=== PATIENT | male | born 1985 | race African-American/Black ===

== ENCOUNTER 2016-06-08 09:45 | Emergency (ER) | payer OTHER ==
[~2016-06-08] VITALS: Ht 193 cm; Wt 114.0 kg
[~2016-06-08 09:45] MED LIST: ALBU18HF INHALATION; ALBU8.5H3 INH; AZIT250T94 PO; BENZ100C70 PO; CEPH-443 PO; CLOT30CR24 TOP; CYCL-319 PO; DICL100G37 TOP; ELIM TOP; GUAI-47 PO; IBUP400T22 PO; MED4DP PO; MUPI22OI2 TOP; NAPR-688 PO; POLY30OI TOP; PRED20TA PO; UDROBDM PO
[2016-06-08 09:54] VITALS: Ht 193 cm; Wt 114.0 kg
[2016-06-08] MEDS ORDERED: KETOROLAC 30 MG INJ IM STA (12:01)
--- NOTE | 2016-06-08 13:04 | RADRPT ---
PROCEDURE: XR left shoulder. CLINICAL INDICATION: Pain TECHNIQUE: AP, Internal and external rotation views of the left shoulder were performed. COMPARISON: None. FINDINGS: There is normal osseous mineralization and alignment. No acute fracture or osseous lesion is identified. There are normal joints without evidence of arthritis or dislocation. The soft tissues are unremarkable. RPTAT: AA IMPRESSION: Unremarkable left shoulder. < .Stevie Rueda MD, MD Date Time Electronically viewed and signed by .Stevie Rueda MD, on 06/08/2016 13:04 .S/
--- NOTE | 2016-06-08 13:05 | RADRPT ---
PROCEDURE: Left knee x-ray CLINICAL INDICATION: Knee pain TECHNIQUE: AP, lateral and tunnel views of the left knee were obtained. COMPARISON: None FINDINGS: There is normal mineralization. No acute fracture or dislocation is seen. There are no significant degenerative changes. There is no joint effusion. There is no significant soft tissue swelling. RPTAT: AA IMPRESSION: Normal x-ray of the left knee. .Stevie Rueda MD, MD Date Time Electronically viewed and signed by .Stevie Rueda MD, on 06/08/2016 13:04 .S/
[2016-06-08] MEDS ORDERED: NAPR-260 PO (13:14)
[2016-06-08 13:30] VITALS: RESP 18
--- NOTE | 2016-06-08 13:35 | ERD ---
ER Documentation Chief Complaint Date/Time DATE: 06/08/16 TIME: 13:30 Chief Complaint left shoulder and left knee pain HPI Patient is a 31 year old male who presents to the ED with shoulder pain, knee pain after sustaining a fall yesterday. He says that he slipped on the stairs and fell on his shoulder and knee. He states that the pain is similar to yesterday. He states that he is able to move his arms and legs and is able to walk but he does have pain inside his joints. Denies pain above or below his knee. Denies radiation of pain in his shoulder. Denies pain in his arms, wrist or hand. Denies hitting his head, passing out, losing consciousness. Denies chest pain, shortness of breath or difficulty breathing. Patient is not taking any medication for his symptoms. He is up-to-date with his vaccinations. ROS All systems reviewed and are negative except as per history of present illness. Medications Home Meds Active Scripts Naproxen* (Naprosyn*) 500 Mg Tablet, 500 MG PO BID Y for PAIN AND/OR INFLAMMATION, #30 TAB Prov:PILAR HSU PA-C 06/08/16 Permethrin* (Elimite*) 5% Cr, 1 APPLIC TOP ONCE for 1 Day, TUB Prov:RAMANA MTZ PA-C 12/08/15 Clotrimazole* (Clotrimazole* AF) 1% - 30 Gm Cream.gm., 1 APPLIC TOP BID for 7 Days, TUB Prov:RAMANA MTZ PA-C 12/08/15 Permethrin* (Elimite*) 5% Cr, 1 APPLIC TOP ONCE, #1 TUB Prov:IMELDA KENNEDY PA-C 11/25/15 Clotrimazole* (Clotrimazole* AF) 1% - 30 Gm Cream.gm., 1 APPLIC TOP BID for 7 Days, #1 TUB Prov:IMELDA KENNEDY PA-C 11/25/15 Clotrimazole* (Clotrimazole* AF) 1% - 30 Gm Cream.gm., 1 APPLIC TOP BID for 7 Days, TUB Prov:OZZIE RODGERS 11/16/15 Clotrimazole* (Clotrimazole* AF) 1% - 30 Gm Cream.gm., 1 APPLIC TOP BID for 7 Days, TUB Prov:JASON VIERA PA-C 11/13/15 Mupirocin* (Bactroban*) 2% -22 Gram Oint...g., 1 APPLIC TOP BID for 7 Days, #1 TUB 0 Refills Prov:ANASTASIIA MOTLEY PA-C 11/09/15 Ibuprofen* (Motrin*) 400 Mg Tab, 400 MG PO Q6 for 7 Days, #30 TAB 0 Refills Prov:ANASTASIIA MOTLEY PA-C 11/09/15 Bacitracin-Polymyxin* (Polysporin* Topical) 28.35 Gm Oint, 1 APPLIC TOP BID for 10 Days, #10 TUB Prov:RAMANA MTZ PA-C 11/07/15 Methylprednisolone* (Medrol* DOSE PACK) 4 Mg/Dose-Pack Tab.ds.pk, 4 MG PO . DIRECTED for 6 Days, PACKET Prov:OZZIE RODGERS 11/03/15 Albuterol Sulfate* (Proair HFA*) 8.5 Gm Hfa.aer.ad, 2 PUFF INH Q4, #1 INHALER Prov:VISHALOZZIE Patterson 11/03/15 Cephalexin* (Keflex*) 500 Mg Capsule, 500 MG PO QID for 7 Days, CAP Prov:VISHALOZZIE VANCE 11/03/15 Albuterol Sulfate* (Ventolin HFA*) 18 Gm Hfa.aer.ad, 2 PUFF INHALATION Q6H for 30 Days, #1 INHALER 0 Refills Prov:ANASTASIIA MOTLEY PA-C 10/17/15 Guaifenesin-Dextromethorphan* (Robitussin* DM) 100MG/10MG/5ML Syrup, 5 ML PO Q6H Y for COUGH for 6 Days, #120 ML 0 Refills Prov:ANASTASIIA MOTLEY PA-C 10/17/15 Albuterol Sulfate* (Proair HFA*) 8.5 Gm Hfa.aer.ad, 2 PUFF INH Q4H Y for WHEEZING AND SOB, #1 INHALER Prov:GRIFFIN COHEN DO 07/24/15 Cyclobenzaprine Hcl* (Cyclobenzaprine Hcl*) 10 Mg Tablet, 10 MG PO Q8 Y for muscle spasm, #10 TAB Prov:GRIFFIN COHEN DO 07/24/15 Methylprednisolone* (Medrol* DOSE PACK) 4 Mg/Dose-Pack Tab.ds.pk, 4 MG PO . DIRECTED, #1 PACKET Prov:GRIFFIN COHEN DO 07/24/15 Naproxen* (Naproxen*) 500 Mg Tablet, 500 MG PO BID Y for PAIN, #20 TAB Prov:GRIFFIN COHEN 07/11/15 Diclofenac Sodium* (Voltaren* Gel) 1% -100 Gm Gel, 2 GM TOP QID, #1 TUB Prov:GRIFFIN COHEN 07/11/15 Cyclobenzaprine Hcl* (Cyclobenzaprine Hcl*) 10 Mg Tablet, 10 MG PO TID, #15 TAB Prov:GRIFFIN COHEN 07/11/15 Guaifenesin-Dextromethorphan* (Mucinex* DM) 600-30 Mg Tabsr, 1 TAB PO Q12, #30 TAB Prov:JAZMIN SANTIAGO PA-C 05/29/15 Prednisone* (Prednisone*) 20 Mg Tab, 60 MG PO DAILY for 5 Days, TAB Prov:JAZMIN SANTIAGO PA-C 05/29/15 Benzonatate* (Tessalon Perle*) 100 Mg Capsule, 100 MG PO Q8H Y for COUGH, #30 CAP Prov:KRISTY GARCIA MD 05/23/15 Albuterol Sulfate* (Ventolin HFA*) 18 Gm Hfa.aer.ad, 2 PUFF INHALATION Q4H, #1 INHALER Prov:KRISTY GARCIA MD 05/23/15 Azithromycin* (Zithromax*) 250 Mg Tablet, 250 MG PO .ZPACK DIRECTED, #6 TAB TAKE 500 MG (2 TABS) THE FIRST DAY THEN 250 MG (1 TAB) DAYS 2-5 Prov:KRISTY GARCIA MD 05/23/15 Allergies Allergies: Coded Allergies: No Known Allergy (Unverified , 06/08/16) PMhx/Soc Medical and Surgical Hx: pt denies Medical Hx, pt denies Surgical Hx History of Surgery: No Anesthesia Reaction: No Hx Neurological Disorder: No Hx Respiratory Disorders: No Hx Cardiac Disorders: No Hx Psychiatric Problems: No Hx Miscellaneous Medical Probl: No Hx Alcohol Use: No Hx Substance Use: No Hx Tobacco Use: Yes Smoking Status: Never smoker FmHx Family History: No coronary disease, No diabetes, No other Physical Exam Vitals Vital Signs Date Time Temp Pulse Resp B/P Pulse Ox O2 Delivery O2 Flow Rate FiO2 06/08/16 09:54 98.1 80 20 140/80 99 Physical Exam GENERAL: Well-developed, well-nourished male. Appears in no acute distress. HEAD: Normocephalic, atraumatic. NECK: Supple. No lymphadenopathy or thyromegaly. No meningismus. negative kernig. negative brudinski. LUNG: Clear to auscultation bilaterally. No rhonchi, wheezing, rales or coarse breath sounds. HEART: Regular rate and rhythm. No murmurs, rubs or gallops. Extremities: Equal pulses bilaterally. No peripheral clubbing, cyanosis or edema. No unilateral leg swelling. Tenderness to left shoulder with flexion and extension of shoulder. No deformities, step-offs, open wounds or laceration. No erythema. No pain in his elbow or wrist. No snuffbox tenderness. Tender to palpation to his left knee. Patient is able to ambulate without difficulty. No signs of dislocation, erythema, laceration or open wounds. No pain above or below his knee. No pain in his ankle. NEUROLOGIC: Alert and oriented. Moving all four extremities. 5/5 strength in all extremities. Normal speech. Steady gait. SKIN: Normal color. Warm and dry. No rashes or lesions. Capillary refill < 2 seconds Results 24 hrs Current Medications Medications (Trade) Dose Ordered Sig/Miguel Route PRN Reason Start Time Stop Time Status Last Admin Dose Admin Ketorolac Tromethamine (Toradol) 30 mg ONCE STAT IM 06/08/16 12:01 06/08/16 12:02 DC 06/08/16 12:13 Procedures/MDM ER COURSE: I kept the patient and/or family informed of laboratory and diagnostic imaging results throughout the emergency room course. MEDICATIONS IMAGING STUDIES [place] [address] Radiology Main Line: [phone] DIAGNOSTIC IMAGING REPORT Patient: NEENA HERNANDEZ : 1985 Age: 31 Sex: M MR #: [id number] DOS: 06/08/16 1201 Ordering MD: PILAR HSU PA-C Location: [facility] Room/Bed: PROCEDURE: Left knee x-ray CLINICAL INDICATION: Knee pain TECHNIQUE: AP, lateral and tunnel views of the left knee were obtained. COMPARISON: None FINDINGS: There is normal mineralization. No acute fracture or dislocation is seen. There are no significant degenerative changes. There is no joint effusion. There is no significant soft tissue swelling. RPTAT: AA IMPRESSION: Normal x-ray of the left knee. .Stevie Rueda MD, MD Date Time Electronically viewed and signed by .Stevie Rueda MD, on 06/08/2016 13: 04 .S/ CC: PILAR HSU PA-C [place] [id number] Radiology Main Line: [phone] DIAGNOSTIC IMAGING REPORT Patient: NEENA HERNANDEZ : 1985 Age: 31 Sex: M MR #: [id number] DOS: 06/08/16 1201 Ordering MD: PILAR HSU PA-C Location: [facility] Room/Bed: PROCEDURE: XR left shoulder. CLINICAL INDICATION: Pain TECHNIQUE: AP, Internal and external rotation views of the left shoulder were performed. COMPARISON: None. FINDINGS: There is normal osseous mineralization and alignment. No acute fracture or osseous lesion is identified. There are normal joints without evidence of arthritis or dislocation. The soft tissues are unremarkable. RPTAT: AA IMPRESSION: Unremarkable left shoulder. < .Stevie Rueda MD, Date Time Electronically viewed and signed by .Stevie Rueda MD, on 06/08/2016 13: 04 .S/ CC: PILAR HSU PA-C PROCEDURES ED seen. Tolerated well. Neurovascularly intact post splint placement. [Aldo wrap Assessment: Neurovascularly intact post aldo wrap placement with good fit to left knee. Patient's extremity symptoms have stabilized while they have been evaluated in the department and are appropriate for outpatient follow up. MEDICAL DECISION MAKING: This is a 31-year-old male who presents with shoulder and knee pain 1 day. Vital signs were reviewed. Patient is afebrile. Patient is not hypoxic. Patient is not toxic or ill-appearing. Patient has shoulder and knee pain of unknown etiology. X-rays read by radiology is unremarkable. Patient was given a Toradol shot in the ED and seen improvement in symptoms and had no adverse reaction. Low suspicion for dislocation, fracture, septic joint, compartment syndrome, osteomyelitis, cellulitis, avascular necrosis, neurological injury, vascular injury, tendon laceration. Low suspicion for dislocation, fracture, septic joint, compartment syndrome, osteomyelitis, avascular necrosis, DVT, Achilles tendon rupture, cellulitis. At this time, unable to rule out any tendon and ligament injuries. DISCHARGE: At this time, patient is stable for discharge and outpatient management with no new complaints during the ER course. Patient was sent home with Jonel and copy of his x-ray reports.. Patient will be discharged home with instructions to recheck for new or worsening symptoms such as fever, nausea, weakness, LOC and to follow up with primary care in the next 1-2 days. Patient was advised to return to the ER for any new or worsening symptoms. Plan was discussed and patient and/or family understands and agrees. Home instructions were given. Departure Diagnosis: Primary Impression: Knee pain Laterality: left Chronicity: unspecified Qualified Code: M25.562 - Left knee pain, unspecified chronicity Additional Impression: Shoulder pain Laterality: left Chronicity: unspecified Qualified Code: M25.512 - Left shoulder pain, unspecified chronicity Condition: Stable Patient Instructions: Knee Pain, Uncertain Cause, Shoulder Pain (Uncertain Cause) Additional Instructions: Call your primary care doctor TOMORROW for an appointment during the next 1-2 days.See the doctor sooner or return here if your condition worsens before your appointment time. PILAR HSU PA-C Jun 08, 2016 13:35
== END 2016-06-08 13:46 | disposition home or self-care (01) ==
LOC: FTE 09:45
DX: S49.92XA Unspecified injury of left shoulder and upper arm, initial encounter (principal); S89.92XA Unspecified injury of left lower leg, initial encounter; F17.210 Nicotine dependence, cigarettes, uncomplicated; W10.9XXA Fall (on) (from) unspecified stairs and steps, initial encounter; Y92.9 Unspecified place or not applicable
CPT/HCPCS: 73030; 73562; 96372; J1885; Z7502

== ENCOUNTER 2016-06-24 19:04 | Emergency (ER) | payer OTHER ==
[~2016-06-24] VITALS: Ht 182.9 cm; Wt 102.5 kg
[~2016-06-24 19:04] MED LIST changes: +NAPR-260 PO
[2016-06-24 19:08] VITALS: Ht 182.9 cm; Wt 102.5 kg
[2016-06-24] MEDS ORDERED: IBUP-1542 PO (20:31)
[2016-06-24 20:38] VITALS: BP 134/81; PULSE 91; RESP 20; TEMP 98.2
--- NOTE | 2016-06-24 20:38 | ERD ---
ER Documentation Chief Complaint Date/Time DATE: 06/24/16 TIME: 20:34 Chief Complaint shoulder and knee pain seen here previously. pt seen exhibiting odd behavio HPI Patient is a 31-year-old male who reports having a fall 2 weeks ago during which he fell onto his left knee and caught himself with his left arm causing pain to his left shoulder. The patient had x-rays at that time that did not show any bony injury. Patient returns to the ER stating that he is having ongoing pain. Denies further trauma. Denies swelling, denies worsening of symptoms. Patient is unsure who his PMD is and so has not followed up with PMD. Patient was given a prescription for medication on his last visit, but states that he lost his prescription. ROS All systems reviewed and are negative except as per history of present illness. Medications Home Meds Active Scripts Ibuprofen* (Motrin*) 600 Mg Tab, 600 MG PO Q8 Y for PAIN, #30 TAB Prov:CHANTEL HAY MD 06/24/16 Naproxen* (Naprosyn*) 500 Mg Tablet, 500 MG PO BID Y for PAIN AND/OR INFLAMMATION, #30 TAB Prov:PILAR HSU PA-C 06/08/16 Permethrin* (Elimite*) 5% Cr, 1 APPLIC TOP ONCE for 1 Day, TUB Prov:RAMANA MTZ PA-C 12/08/15 Clotrimazole* (Clotrimazole* AF) 1% - 30 Gm Cream.gm., 1 APPLIC TOP BID for 7 Days, TUB Prov:RAMANA MTZC 12/08/15 Permethrin* (Elimite*) 5% Cr, 1 APPLIC TOP ONCE, #1 TUB Prov:IMELDA KENNEDY PA-C 11/25/15 Clotrimazole* (Clotrimazole* AF) 1% - 30 Gm Cream.gm., 1 APPLIC TOP BID for 7 Days, #1 TUB Prov:IMELDA KENNEDYC 11/25/15 Clotrimazole* (Clotrimazole* AF) 1% - 30 Gm Cream.gm., 1 APPLIC TOP BID for 7 Days, TUB Prov:OZZIE RODGERS 11/16/15 Clotrimazole* (Clotrimazole* AF) 1% - 30 Gm Cream.gm., 1 APPLIC TOP BID for 7 Days, TUB Prov:JASON VIERA PA-C 11/13/15 Mupirocin* (Bactroban*) 2% -22 Gram Oint...g., 1 APPLIC TOP BID for 7 Days, #1 TUB 0 Refills Prov:ANASTASIIA MOTLEY PA-C 11/09/15 Ibuprofen* (Motrin*) 400 Mg Tab, 400 MG PO Q6 for 7 Days, #30 TAB 0 Refills Prov:ANASTASIIA MOTLEY PA-C 11/09/15 Bacitracin-Polymyxin* (Polysporin* Topical) 28.35 Gm Oint, 1 APPLIC TOP BID for 10 Days, #10 TUB Prov:RAMANA MTZ PA-C 11/07/15 Methylprednisolone* (Medrol* DOSE PACK) 4 Mg/Dose-Pack Tab.ds.pk, 4 MG PO . DIRECTED for 6 Days, PACKET Prov:OZZIE RODGERS 11/03/15 Albuterol Sulfate* (Proair HFA*) 8.5 Gm Hfa.aer.ad, 2 PUFF INH Q4, #1 INHALER Prov:OZZIE RODGERS 11/03/15 Cephalexin* (Keflex*) 500 Mg Capsule, 500 MG PO QID for 7 Days, CAP Prov:OZZIE RODGERS 11/03/15 Albuterol Sulfate* (Ventolin HFA*) 18 Gm Hfa.aer.ad, 2 PUFF INHALATION Q6H for 30 Days, #1 INHALER 0 Refills Prov:ANASTASIIA MOTLEY PA-C 10/17/15 Guaifenesin-Dextromethorphan* (Robitussin* DM) 100MG/10MG/5ML Syrup, 5 ML PO Q6H Y for COUGH for 6 Days, #120 ML 0 Refills Prov:ANASTASIIA MOTLEY PA-C 10/17/15 Albuterol Sulfate* (Proair HFA*) 8.5 Gm Hfa.aer.ad, 2 PUFF INH Q4H Y for WHEEZING AND SOB, #1 INHALER Prov:GRIFFIN COHEN DO 07/24/15 Cyclobenzaprine Hcl* (Cyclobenzaprine Hcl*) 10 Mg Tablet, 10 MG PO Q8 Y for muscle spasm, #10 TAB Prov:GRIFFIN COHEN 07/24/15 Methylprednisolone* (Medrol* DOSE PACK) 4 Mg/Dose-Pack Tab.ds.pk, 4 MG PO . DIRECTED, #1 PACKET Prov:GRIFFIN COHEN 07/24/15 Naproxen* (Naproxen*) 500 Mg Tablet, 500 MG PO BID Y for PAIN, #20 TAB Prov:VICKI,[facility] 07/11/15 Diclofenac Sodium* (Voltaren* Gel) 1% -100 Gm Gel, 2 GM TOP QID, #1 TUB Prov:VCIKI,[facility] 07/11/15 Cyclobenzaprine Hcl* (Cyclobenzaprine Hcl*) 10 Mg Tablet, 10 MG PO TID, #15 TAB Prov:VICKI,[facility] 07/11/15 Guaifenesin-Dextromethorphan* (Mucinex* DM) 600-30 Mg Tabsr, 1 TAB PO Q12, #30 TAB Prov:JAZMIN SANTIAGO PA-C 05/29/15 Prednisone* (Prednisone*) 20 Mg Tab, 60 MG PO DAILY for 5 Days, TAB Prov:JAZMIN SANTIAGO PA-C 05/29/15 Benzonatate* (Tessalon Perle*) 100 Mg Capsule, 100 MG PO Q8H Y for COUGH, #30 CAP Prov:KRISTY GARCIA MD 05/23/15 Albuterol Sulfate* (Ventolin HFA*) 18 Gm Hfa.aer.ad, 2 PUFF INHALATION Q4H, #1 INHALER Prov:KRISTY GARCIA MD 05/23/15 Azithromycin* (Zithromax*) 250 Mg Tablet, 250 MG PO .ZPACK DIRECTED, #6 TAB TAKE 500 MG (2 TABS) THE FIRST DAY THEN 250 MG (1 TAB) DAYS 2-5 Prov:KRISTY GARCIA MD 05/23/15 Allergies Allergies: Coded Allergies: No Known Allergy (Unverified , 06/08/16) PMhx/Soc Past medical history: Depression Past surgical history: Denies Social history: Denies tobacco or alcohol History of Surgery: No Anesthesia Reaction: No Hx Neurological Disorder: No Hx Respiratory Disorders: No Hx Cardiac Disorders: No Hx Psychiatric Problems: Yes (on psych meds, depression) Hx Miscellaneous Medical Probl: No Hx Alcohol Use: No Hx Substance Use: No Hx Tobacco Use: Yes (quit) Smoking Status: Former smoker FmHx Family History: No coronary disease, No diabetes Physical Exam Vitals Vital Signs Date Time Temp Pulse Resp B/P Pulse Ox O2 Delivery O2 Flow Rate FiO2 06/24/16 19:08 98.4 111 20 135/68 97 Physical Exam Const: Alert no acute distress Head: Atraumatic Eyes: Normal Conjunctiva, no pallor or icterus ENT: Normal External Ears, Nose and Mouth. Neck: Full range of motion. No tenderness Resp: Clear to auscultation bilaterally, no wheezes, no rales Cardio: Regular rate and rhythm, no murmurs Abd: Soft, non tender, non distended. Skin: No petechiae or rashes Back: No midline or flank tenderness Ext: Inconsistent exam. Patient is actively moving his arm and lifting objects without any apparent pain, but with the lightest palpation to posterior shoulder he complains of severe pain. There is no visible or palpable deformity. On passive range of motion with distraction there is no apparent pain. 2+ radial pulse, median, radial, and ulnar nerve intact distally at hand for motor and sensory function. Left knee no visible deformity or swelling. Extensor mechanism intact. No effusion. No ligamentous laxity. Inconsistent exam, with expression of significant pain with ranging of the joints and palpation, but minimal expression with ambulation or with distraction. Neur: Awake and alert, cranial nerves II through XII intact bilaterally, normal gait Psych: Normal Mood and Affect Procedures/MDM Patient with injury to left knee and shoulder 2 weeks ago. X-rays were negative. Exam is inconsistent, and patient has a normal gait and use of his left arm, but reports significant pain during minimal exam maneuvers. It is difficult for me to ascertain whether the patient has a true injury based upon his examination being inconsistent. It is possible that he may have a meniscal injury in the knee or a labrum tear or muscle strain in the shoulder. I have advised him that he needs to follow-up with his PMD for further evaluation and outpatient MRI is indicated. Patient function using his upper and lower limb appear to be intact. I will prescribe him Motrin for ongoing pain and encouraged him to see his PMD as soon as possible. Departure Diagnosis: Primary Impression: Knee pain Additional Impression: Shoulder pain Condition: Stable Patient Instructions: Knee Pain, Uncertain Cause, Shoulder Pain (Uncertain Cause) Additional Instructions: Follow-up with a primary doctor for further workup and possible referral to orthopedic surgeon. CHANTEL HAY MD Jun 24, 2016 20:38
== END 2016-06-24 20:39 | disposition home or self-care (01) ==
LOC: E/R 19:04
DX: S89.92XA Unspecified injury of left lower leg, initial encounter (principal); S49.92XA Unspecified injury of left shoulder and upper arm, initial encounter; R40.2142 Coma scale, eyes open, spontaneous, at arrival to emergency department; R40.2252 Coma scale, best verbal response, oriented, at arrival to emergency department; R40.2362 Coma scale, best motor response, obeys commands, at arrival to emergency department; W18.39XA Other fall on same level, initial encounter; Y92.9 Unspecified place or not applicable; Z87.891 Personal history of nicotine dependence
CPT/HCPCS: 99283

== ENCOUNTER 2016-08-22 13:36 | Emergency (ER) | payer OTHER ==
[~2016-08-22] VITALS: Ht 182.9 cm; Wt 98.0 kg
[~2016-08-22 13:36] MED LIST changes: +IBUP-1542 PO
[2016-08-22 13:45] VITALS: Ht 182.9 cm; Wt 98.0 kg
[2016-08-22] MEDS ORDERED: KETOROLAC 60 MG INJ IM STA (14:47)
[2016-08-22] MEDS ORDERED: HYDROCODONE/APAP (10/325) TAB PO ONE (15:00)
[2016-08-22] MEDS ORDERED: DOXYCYCLINE 100 MG TAB PO ONE (15:00)
[2016-08-22] MEDS ORDERED: HYDR-902 PO (15:24)
[2016-08-22] MEDS ORDERED: IBUP-1542 PO (15:24)
[2016-08-22] MEDS ORDERED: DOXY100T20 PO (15:24)
[2016-08-22 15:27] LABS: ADD UMIC YES; URINE BILIRUBIN (Dip) NEGATIVE (NEGATIVE); URINE BLOOD (Dip) NEGATIVE (NEGATIVE); URINE COLOR LT. YELLOW (YELLOW); URINE GLUCOSE (Dip) NEGATIVE (NEGATIVE); URINE KETONES (Dip) NEGATIVE (NEGATIVE); URINE LEUKOCYTE ESTERASE (Dip) NEGATIVE (NEGATIVE); URINE NITRITE (Dip) NEGATIVE (NEGATIVE); URINE TOTAL PROTEIN (Dip) NEGATIVE (NEGATIVE); URINE UROBILINOGEN (Dip) 0.2 E.U./dL (0.1-1.0)
--- NOTE | 2016-08-22 15:29 | ERD ---
ER Documentation Chief Complaint Date/Time DATE: 08/22/16 TIME: 15:27 Chief Complaint pelvic pain and pain with urination HPI This 31-year-old male complains of pelvic pressure discomfort with urination intermittently for last several weeks. He had a CAT scan 2 weeks ago which she was told they were unable to visualize anything abnormal. She had some intermittent rectal bleeding as well and says that he has a GI appointment pending to his primary doctor. He does not think he has been scheduled to see a urologist. He is taking antibiotics twice for this condition without improvement. ROS All systems reviewed and are negative except as per history of present illness. Medications Home Meds Active Scripts Ibuprofen* (Motrin*) 600 Mg Tab, 600 MG PO Q6, #30 TAB Prov:RYAN GOVEA MD 08/22/16 Doxycycline Hyclate* (Doxycycline Hyclate*) 100 Mg Tablet.dr, 100 MG PO BID for 14 Days, TAB Prov:RYAN GOVEA MD 08/22/16 Hydrocodone/Acetaminophen ([place] 10-325 Tablet) 1 Each Tablet, 1 TAB PO Q6H Y for PAIN, #15 TAB Prov:RYAN GOVEA MD 08/22/16 Ibuprofen* (Motrin*) 600 Mg Tab, 600 MG PO Q8 Y for PAIN, #30 TAB Prov:CHANTEL HAY MD 06/24/16 Naproxen* (Naprosyn*) 500 Mg Tablet, 500 MG PO BID Y for PAIN AND/OR INFLAMMATION, #30 TAB Prov:PILAR HSU PA-C 06/08/16 Permethrin* (Elimite*) 5% Cr, 1 APPLIC TOP ONCE for 1 Day, TUB Prov:RAMANA MTZ PA-C 12/08/15 Clotrimazole* (Clotrimazole* AF) 1% - 30 Gm Cream.gm., 1 APPLIC TOP BID for 7 Days, TUB Prov:RAMANA MTZ PA-C 12/08/15 Permethrin* (Elimite*) 5% Cr, 1 APPLIC TOP ONCE, #1 TUB Prov:IMELDA KENNEDY PA-C 11/25/15 Clotrimazole* (Clotrimazole* AF) 1% - 30 Gm Cream.gm., 1 APPLIC TOP BID for 7 Days, #1 TUB Prov:IMELDA KENNEDYC 11/25/15 Clotrimazole* (Clotrimazole* AF) 1% - 30 Gm Cream.gm., 1 APPLIC TOP BID for 7 Days, TUB Prov:OZZIE RODGERS Yesenia 11/16/15 Clotrimazole* (Clotrimazole* AF) 1% - 30 Gm Cream.gm., 1 APPLIC TOP BID for 7 Days, TUB Prov:JASON VIERAC 11/13/15 Mupirocin* (Bactroban*) 2% -22 Gram Oint...g., 1 APPLIC TOP BID for 7 Days, #1 TUB 0 Refills Prov:ANASTASIIA MOTLEY PA-C 11/09/15 Ibuprofen* (Motrin*) 400 Mg Tab, 400 MG PO Q6 for 7 Days, #30 TAB 0 Refills Prov:ANASTASIIA MOTLEY PA-C 11/09/15 Bacitracin-Polymyxin* (Polysporin* Topical) 28.35 Gm Oint, 1 APPLIC TOP BID for 10 Days, #10 TUB Prov:RAMANA MTZ PA-C 11/07/15 Methylprednisolone* (Medrol* DOSE PACK) 4 Mg/Dose-Pack Tab.ds.pk, 4 MG PO . DIRECTED for 6 Days, PACKET Prov:OZZIE RODGERS Yesenia 11/03/15 Albuterol Sulfate* (Proair HFA*) 8.5 Gm Hfa.aer.ad, 2 PUFF INH Q4, #1 INHALER Prov:OZZIE RODGERS 11/03/15 Cephalexin* (Keflex*) 500 Mg Capsule, 500 MG PO QID for 7 Days, CAP Prov:OZZIE RODGERS 11/03/15 Albuterol Sulfate* (Ventolin HFA*) 18 Gm Hfa.aer.ad, 2 PUFF INHALATION Q6H for 30 Days, #1 INHALER 0 Refills Prov:ANASTASIIA MOTLEY PA-C 10/17/15 Guaifenesin-Dextromethorphan* (Robitussin* DM) 100MG/10MG/5ML Syrup, 5 ML PO Q6H Y for COUGH for 6 Days, #120 ML 0 Refills Prov:ANASTASIIA MOTLEY PA-C 10/17/15 Albuterol Sulfate* (Proair HFA*) 8.5 Gm Hfa.aer.ad, 2 PUFF INH Q4H Y for WHEEZING AND SOB, #1 INHALER Prov:GRIFFIN COHEN 07/24/15 Cyclobenzaprine Hcl* (Cyclobenzaprine Hcl*) 10 Mg Tablet, 10 MG PO Q8 Y for muscle spasm, #10 TAB Prov:VICKI,[facility] 07/24/15 Methylprednisolone* (Medrol* DOSE PACK) 4 Mg/Dose-Pack Tab.ds.pk, 4 MG PO . DIRECTED, #1 PACKET Prov:VICKI,GRIFFIN DO 07/24/15 Naproxen* (Naproxen*) 500 Mg Tablet, 500 MG PO BID Y for PAIN, #20 TAB Prov:VICKI,[facility] 07/11/15 Diclofenac Sodium* (Voltaren* Gel) 1% -100 Gm Gel, 2 GM TOP QID, #1 TUB Prov:VICKI,[facility] 07/11/15 Cyclobenzaprine Hcl* (Cyclobenzaprine Hcl*) 10 Mg Tablet, 10 MG PO TID, #15 TAB Prov:VICKI,[facility] 07/11/15 Guaifenesin-Dextromethorphan* (Mucinex* DM) 600-30 Mg Tabsr, 1 TAB PO Q12, #30 TAB Prov:JAZMIN SANTIAGO PA-C 05/29/15 Prednisone* (Prednisone*) 20 Mg Tab, 60 MG PO DAILY for 5 Days, TAB Prov:JAZMIN SANTIAGO PA-C 05/29/15 Benzonatate* (Tessalon Perle*) 100 Mg Capsule, 100 MG PO Q8H Y for COUGH, #30 CAP Prov:KRISTY GARCIA MD 05/23/15 Albuterol Sulfate* (Ventolin HFA*) 18 Gm Hfa.aer.ad, 2 PUFF INHALATION Q4H, #1 INHALER Prov:KRISTY GARCIA MD 05/23/15 Azithromycin* (Zithromax*) 250 Mg Tablet, 250 MG PO .ZPACK DIRECTED, #6 TAB TAKE 500 MG (2 TABS) THE FIRST DAY THEN 250 MG (1 TAB) DAYS 2-5 Prov:KRISTY GARCIA MD 05/23/15 Allergies Allergies: Coded Allergies: No Known Allergy (Unverified , 08/22/16) PMhx/Soc Medical and Surgical Hx: pt denies Surgical Hx History of Surgery: No Anesthesia Reaction: No Hx Neurological Disorder: No Hx Respiratory Disorders: No Hx Cardiac Disorders: No Hx Psychiatric Problems: Yes (on psych meds, depression) Hx Miscellaneous Medical Probl: No Hx Alcohol Use: No Hx Substance Use: No Hx Tobacco Use: Yes (quit) Smoking Status: Never smoker Physical Exam Vitals Vital Signs Date Time Temp Pulse Resp B/P Pulse Ox O2 Delivery O2 Flow Rate FiO2 08/22/16 13:45 98.4 97 16 130/72 Physical Exam Const: [] Alert, ilk-sny-synitofrn Head: Atraumatic Eyes: Normal Conjunctiva ENT: Normal External Ears, Nose and Mouth. Neck: Full range of motion..~ No meningismus. Resp: Clear to auscultation bilaterally Cardio: Regular rate and rhythm, no murmurs Abd: Soft, minimally tender suprapubic area non distended. Normal bowel sounds. Rectal exam shows exquisitely and tender and enlarged prostate. There is no external rectal lesions or erythema or fluctuance Skin: No petechiae or rashes Back: No midline or flank tenderness Ext: No cyanosis, or edema Neur: Awake and alert Psych: Normal Mood and Affect Results 24 hrs Current Medications Medications (Trade) Dose Ordered Sig/Miguel Route PRN Reason Start Time Stop Time Status Last Admin Dose Admin Ketorolac Tromethamine (Toradol) 60 mg ONCE STAT IM 08/22/16 14:47 08/22/16 14:49 DC 08/22/16 15:01 Acetaminophen/ Hydrocodone Bitart (Vilas (10/325)) 1 tab ONCE ONCE PO 08/22/16 15:00 08/22/16 15:01 DC 08/22/16 15:02 Doxycycline Hyclate (Vibramycin) 100 mg ONCE ONCE PO 08/22/16 15:00 08/22/16 15:01 DC Procedures/MDM Patient has signs and symptoms of prostatitis, likely chronic. UA shows no acute abnormalities and sent for culture. Patient was given Toradol 60 mg IM and Vilas 10 mg by mouth. Patient was also given doxycycline 100 mg. Patient was advised that the next step would be to urology evaluation as he thought the GI doctor would be able to evaluate his prostate. Patient had a CT scan 2 weeks ago which by report was normal so for the study was deferred today given her risk of radiation and no fevers and stable vitals no signs or symptoms to suggest worsening intra-abdominal infection. Patient is advised to return for fevers, vomiting, worsening pain otherwise he will be referred to local urologist and was advised he may need authorization from his primary doctor for urology visit. Signs and symptoms do not suggest appendicitis, acute abdomen, obstruction. Departure Diagnosis: Primary Impression: Prostatitis Prostatitis type: chronic Qualified Code: N41.1 - Chronic prostatitis Condition: Stable Patient Instructions: Prostatitis Referrals: [facility],JER Figueredo MD Additional Instructions: Exam consistent with prostatitis. See urologist as advised. May need authorization from primary doctor. Recheck for fevers, additional symptoms. RYAN GOVEA MD Aug 22, 2016 15:29
[2016-08-22 15:49] LABS: BACTERIA,URINE FEW; URINE RBCS NONE SEEN /HPF (0)
== END 2016-08-22 15:40 | disposition home or self-care (01) ==
LOC: FTE 13:36
DX: N41.1 Chronic prostatitis (principal); Z87.891 Personal history of nicotine dependence
CPT/HCPCS: 81001; 96372; J1885; Z7502; Z7610

== ENCOUNTER 2016-08-24 00:29 | Emergency (ER) | payer OTHER ==
[~2016-08-24] VITALS: Wt 93.5 kg
[~2016-08-24 00:29] MED LIST changes: +DOXY100T20 PO; +HYDR-902 PO
[2016-08-24] MEDS ORDERED: KETOROLAC 60 MG INJ IM ONE (01:56)
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
[2016-08-24] MEDS ORDERED: IBUP-1542 PO (02:01)
[2016-08-24] MEDS ORDERED: CEPH-443 PO (02:01)
[2016-08-24 02:15] VITALS: BP 118/72; PULSE 71; RESP 20; TEMP 98.2
[2016-08-25] MEDS ORDERED: PHEN1SUP80 PR (20:38)
[2016-08-25] MEDS ORDERED: PRED20TA PO (20:38)
== END 2016-08-24 02:30 | disposition home or self-care (01) ==
LOC: FTE 00:29
DX: S61.210A Laceration without foreign body of right index finger without damage to nail, initial encounter (principal); X99.1XXA Assault by knife, initial encounter; Y92.410 Unspecified street and highway as the place of occurrence of the external cause; Z87.891 Personal history of nicotine dependence
CPT/HCPCS: 12001; 96372; J1885; Z7502

== ENCOUNTER 2016-08-25 16:28 | Emergency (ER) | payer OTHER ==
[~2016-08-25] VITALS: Ht 185.4 cm; Wt 89.0 kg
[2016-08-25 16:30] VITALS: Ht 185.4 cm; Wt 89.0 kg
[2016-08-25] MEDS ORDERED: ONDANSETRON 4 MG INJ IV STA (17:58)
[2016-08-25] MEDS ORDERED: morphine 4 MG/ML VIAL IV STA (17:58)
[2016-08-25 18:23] LABS: ADD SCAN DIFF NO
[2016-08-25 18:26] LABS: BASOPHIL # 0.1 10^3/ul (0.0-0.1); BASOPHILS % 0.7 % (0.0-2.0); EOSINOPHILS # 0.4 10^3/ul (0.0-0.5); EOSINOPHILS % 3.4 % (0.0-7.0); HEMATOCRIT 43.7 % (42.0-52.0); HEMOGLOBIN 13.7 g/dl (14.0-18.0); LYMPHOCYTES # 2.6 10^3/ul (0.8-2.9); LYMPHOCYTES % 23.6 % (15.0-51.0); MEAN CORPUSCULAR HEMOGLOBIN 27.8 pg (29.0-33.0); MEAN CORPUSCULAR HGB CONC 31.4 g/dl (32.0-37.0); MEAN CORPUSCULAR VOLUME 88.6 fl (82.0-101.0); MONOCYTE # 0.9 10^3/ul (0.3-0.9); MONOCYTES % 8.5 % (0.0-11.0); NEUTROPHILS % 63.4 % (39.0-77.0); PLATELET COUNT 261 10^3/UL (140-415); RED BLOOD COUNT 4.93 10^6/ul (4.70-6.10); RED CELL DISTRIBUTION WIDTH 14.1 % (11.5-14.5)
[2016-08-25 18:39] LABS: PROTIME 13.2 Sec (12.2-14.2)
[2016-08-25 18:47] LABS: ALBUMIN 4.6 g/dl (3.3-4.9); ALBUMIN/GLOBULIN RATIO 1.7; BILIRUBIN,INDIRECT 0.2 mg/dl (0-1.1); BILIRUBIN,TOTAL 0.2 mg/dl (0.2-1.3); CALCIUM 9.6 mg/dl (8.4-10.2); CREATININE 0.89 mg/dl (0.61-1.24); POTASSIUM 4.3 mmol/L (3.5-5.1); TOTAL PROTEIN 7.3 g/dl (6.1-8.1)
[2016-08-25] MEDS ORDERED: SOD CHLORIDE 0.9% 100 ML ONE (18:57)
[2016-08-25] MEDS ORDERED: IOHEXOL 300MG/ML 150 ML BTL ONE (18:57)
--- NOTE | 2016-08-25 20:21 | RADRPT ---
PROCEDURE: CT Abdomen and Pelvis with Contrast CLINICAL INDICATION: Rectal pain, rule out abscess TECHNIQUE: Transaxial images were obtained through the abdomen and pelvis on a multi-slice scanner following the intravenous administration of iodinated contrast. No oral contrast had previously be en given. Sagittal and coronal re-formations were subsequently reconstructed. One or more of the following dose reduction techniques were used: - Automated exposure control. - Adjustment of the mA and/or kV according to patient size. - Use of iterative reconstruction technique. Radiation dose: CTDIvol = 10.60 mGy; DLP = 728.32 mGy-cm. COMPARISON: No prior studies are available for comparison. FINDINGS: Lung bases: The visualized lung bases appear unremarkable. Liver: Normal in size and in attenuation. There is no focal lesion. The hepatic veins and portal vei ns appear patent. Gallbladder: The wall is not thickened. No radiopaque stones are identified. Bile ducts: The intra and extrahepatic bile ducts are normal in caliber. Pancreas: Appears normal with no mass or inflammation evident. Spleen: Normal in size with no focal lesion. Adrenals: Normal with no mass identified. Kidneys, ureters and bladder: The kidneys enhance normally and are normal in size and there is no ma ss, pathological calcification, or hydronephrosis evident. There is no perinephric stranding. The ur eters are normal in caliber and no ureteroliths are identified. The bladder appears unremarkable. Reproductive organs: Unremarkable. Stomach, bowel, and mesentery: The stomach appears unremarkable. There is no evidence of bowel obst ruction or inflammation. The rectum appears unremarkable and no perirectal or perineal abscess is e vident. Appendix: A normal vermiform appendix is evident. Peritoneum: No free intraperitoneal fluid or air is identified. Aorta: Normal in caliber with no aneurysmal dilatation. IVC: Unremarkable. Lymph nodes: No pathologically enlarged nodes are identified. Osseous structures: The osseous elements appear intact. IMPRESSION: Unremarkable CT scan of the abdomen and pelvis. Physician Diana Date Time Electronically viewed and signed by Physician Diana on 08/25/2016 20:21 RH/
[2016-08-25] MEDS ORDERED: PRED20TA PO (20:38)
[2016-08-25] MEDS ORDERED: PHEN1SUP80 PR (20:38)
--- NOTE | 2016-08-26 00:41 | ERD ---
ER Documentation Chief Complaint Date/Time DATE: 08/26/16 TIME: 00:23 Chief Complaint LEFT INDEX SMALL CUT HPI 31-year-old male complaining of rectal pain and blood in the stool. Patient stated that since that has been persisting on and off for the last 2-3 weeks. The blood is bright red in the color. Patient has been seen at several EDs in the that time, Including this ED. This is his third visit in the last 3 days. He was told that he has prostatitis, and had been given doxycycline and Cipro in the past. Patient stated that none of the medications have helped his symptoms. He describes his rectal pain is pressure-like, and unbearable. He feels as if something is falling out. Denies fever or chills. Denies dysuria. Patient denies engaging in anal sex. Patient is homeless. ROS All systems reviewed and are negative except as per history of present illness. Medications Home Meds Active Scripts Phenylephrine HCl/Boaz Butter* (Preparation H* Suppository) 1 Each Supp.rect, 1 EACH TN TID, #30 SUPP.RECT Prov:LALO BARNES NP 08/25/16 Prednisone* (Prednisone*) 20 Mg Tab, 60 MG PO DAILY for 3 Days, TAB Prov:LALO BARNES NP 08/25/16 Ibuprofen* (Motrin*) 600 Mg Tab, 600 MG PO Q6H Y for PAIN AND OR ELEVATED TEMP, #30 TAB Prov:ANGEL TOBAR NP 08/24/16 Cephalexin* (Keflex*) 500 Mg Capsule, 500 MG PO QID for 5 Days, CAP Prov:ANGEL TOBAR NP 08/24/16 Ibuprofen* (Motrin*) 600 Mg Tab, 600 MG PO Q6, #30 TAB Prov:RYAN GOVEA MD 08/22/16 Doxycycline Hyclate* (Doxycycline Hyclate*) 100 Mg Tablet.dr, 100 MG PO BID for 14 Days, TAB Prov:RYAN GOVEA MD 08/22/16 Hydrocodone/Acetaminophen (Cameron 10-325 Tablet) 1 Each Tablet, 1 TAB PO Q6H Y for PAIN, #15 TAB Prov:RYAN GOVEA MD 08/22/16 Ibuprofen* (Motrin*) 600 Mg Tab, 600 MG PO Q8 Y for PAIN, #30 TAB Prov:CHANTEL HAY MD 06/24/16 Naproxen* (Naprosyn*) 500 Mg Tablet, 500 MG PO BID Y for PAIN AND/OR INFLAMMATION, #30 TAB Prov:PILAR HSU PA-C 06/08/16 Permethrin* (Elimite*) 5% Cr, 1 APPLIC TOP ONCE for 1 Day, TUB Prov:RAMANA MTZ PA-C 12/08/15 Clotrimazole* (Clotrimazole* AF) 1% - 30 Gm Cream.gm., 1 APPLIC TOP BID for 7 Days, TUB Prov:RAMANA MTZ PA-C 12/08/15 Permethrin* (Elimite*) 5% Cr, 1 APPLIC TOP ONCE, #1 TUB Prov:IMELDA KENNEDY PA-C 11/25/15 Clotrimazole* (Clotrimazole* AF) 1% - 30 Gm Cream.gm., 1 APPLIC TOP BID for 7 Days, #1 TUB Prov:IMELDA KENNEDY PA-C 11/25/15 Clotrimazole* (Clotrimazole* AF) 1% - 30 Gm Cream.gm., 1 APPLIC TOP BID for 7 Days, TUB Prov:OZZIE RODGERS 11/16/15 Clotrimazole* (Clotrimazole* AF) 1% - 30 Gm Cream.gm., 1 APPLIC TOP BID for 7 Days, TUB Prov:JASON VIERA PA-C 11/13/15 Mupirocin* (Bactroban*) 2% -22 Gram Oint...g., 1 APPLIC TOP BID for 7 Days, #1 TUB 0 Refills Prov:ANASTASIIA MOTLEY PA-C 11/09/15 Ibuprofen* (Motrin*) 400 Mg Tab, 400 MG PO Q6 for 7 Days, #30 TAB 0 Refills Prov:ANASTASIIA MOTLEY PA-C 11/09/15 Bacitracin-Polymyxin* (Polysporin* Topical) 28.35 Gm Oint, 1 APPLIC TOP BID for 10 Days, #10 TUB Prov:RAMANA MTZ PA-C 11/07/15 Methylprednisolone* (Medrol* DOSE PACK) 4 Mg/Dose-Pack Tab.ds.pk, 4 MG PO . DIRECTED for 6 Days, PACKET Prov:OZZIE RODGERS Yesenia 11/03/15 Albuterol Sulfate* (Proair HFA*) 8.5 Gm Hfa.aer.ad, 2 PUFF INH Q4, #1 INHALER Prov:OZZIE RODGERS Yes[place] 11/03/15 Cephalexin* (Keflex*) 500 Mg Capsule, 500 MG PO QID for 7 Days, CAP Prov:OZZIE RODGERS Yes[place] 11/03/15 Albuterol Sulfate* (Ventolin HFA*) 18 Gm Hfa.aer.ad, 2 PUFF INHALATION Q6H for 30 Days, #1 INHALER 0 Refills Prov:ANASTASIIA MOTLEY PA-C 10/17/15 Guaifenesin-Dextromethorphan* (Robitussin* DM) 100MG/10MG/5ML Syrup, 5 ML PO Q6H Y for COUGH for 6 Days, #120 ML 0 Refills Prov:ANASTASIIA MOTLEY PA-C 10/17/15 Albuterol Sulfate* (Proair HFA*) 8.5 Gm Hfa.aer.ad, 2 PUFF INH Q4H Y for WHEEZING AND SOB, #1 INHALER Prov:GRIFFIN COHEN DO 07/24/15 Cyclobenzaprine Hcl* (Cyclobenzaprine Hcl*) 10 Mg Tablet, 10 MG PO Q8 Y for muscle spasm, #10 TAB Prov:GRIFFIN COHEN DO 07/24/15 Methylprednisolone* (Medrol* DOSE PACK) 4 Mg/Dose-Pack Tab.ds.pk, 4 MG PO . DIRECTED, #1 PACKET Prov:GRIFFIN COHEN DO 07/24/15 Naproxen* (Naproxen*) 500 Mg Tablet, 500 MG PO BID Y for PAIN, #20 TAB Prov:GRIFFIN COHEN DO 07/11/15 Diclofenac Sodium* (Voltaren* Gel) 1% -100 Gm Gel, 2 GM TOP QID, #1 TUB Prov:GRIFFIN COHEN DO 07/11/15 Cyclobenzaprine Hcl* (Cyclobenzaprine Hcl*) 10 Mg Tablet, 10 MG PO TID, #15 TAB Prov:GRIFFIN COHEN DO 07/11/15 Guaifenesin-Dextromethorphan* (Mucinex* DM) 600-30 Mg Tabsr, 1 TAB PO Q12, #30 TAB Prov:JAZMIN SANTIAGO PA-C 05/29/15 Prednisone* (Prednisone*) 20 Mg Tab, 60 MG PO DAILY for 5 Days, TAB Prov:JAZMIN SANTIAGO PA-C 05/29/15 Benzonatate* (Tessalon Perle*) 100 Mg Capsule, 100 MG PO Q8H Y for COUGH, #30 CAP Prov:KRISTY GARCIA MD 05/23/15 Albuterol Sulfate* (Ventolin HFA*) 18 Gm Hfa.aer.ad, 2 PUFF INHALATION Q4H, #1 INHALER Prov:KRISTY GARCIA MD 05/23/15 Azithromycin* (Zithromax*) 250 Mg Tablet, 250 MG PO .ZPACK DIRECTED, #6 TAB TAKE 500 MG (2 TABS) THE FIRST DAY THEN 250 MG (1 TAB) DAYS 2-5 Prov:KRISTY GARCIA MD 05/23/15 Allergies Allergies: Coded Allergies: No Known Allergy (Unverified , 08/22/16) PMhx/Soc History of Surgery: No Anesthesia Reaction: No Hx Neurological Disorder: No Hx Respiratory Disorders: No Hx Cardiac Disorders: No Hx Psychiatric Problems: Yes (on psych meds, depression) Hx Miscellaneous Medical Probl: No Hx Alcohol Use: No Hx Substance Use: No Hx Tobacco Use: Yes (quit) Smoking Status: Current every day smoker Physical Exam Vitals Vital Signs Date Time Temp Pulse Resp B/P Pulse Ox O2 Delivery O2 Flow Rate FiO2 08/25/16 16:30 98.1 89 20 148/78 99 Physical Exam General: Well-developed, well-nourished, conscious and coherent, in no distress Skin: Warm and dry without rash, good texture and turgor Head: Normocephalic without evidence of trauma Eyes: Sclera and conjunctivae normal; pupils equal, round, and reactive to light; extraocular movements are intact Chest: Normal AP diameter. Good expansion without retractions. Nontender. Lungs are clear to auscultate bilaterally with good tidal volume Heart: Regular rate and rhythm. No murmur, rub, or gallops heard Abdomen: Soft and nontender without masses, guarding, or rebound. Bowel sounds are active. No hepatosplenomegaly Pelvis: Nontender to palpation and stable to compression Rectal: Normal tone. Rectal wall tenderness, unable to perform prostate exam due to pain. Stool is brown. Patient also has erythema tenderness in the gluteal folds. Extremities: Full range of motion. Good strength bilaterally. No clubbing, cyanosis, or edema. Peripheral pulses are intact. Sensation intact Neuro: Alert and oriented 4, GCS 15. Cranial nerves grossly intact. Motor and sensory exams nonfocal. Moves all extremities. Speech clear. Gait normal Psych: Pressured speech, anxious in appearance. Result Diagram: 08/25/16 1820 08/25/16 1820 Results 24 hrs Laboratory Tests Test 08/25/16 18:20 White Blood Count 11.010^3/ul Red Blood Count 4.9310^6/ul Hemoglobin 13.7g/dl Hematocrit 43.7% Mean Corpuscular Volume 88.6fl Mean Corpuscular Hemoglobin 27.8pg Mean Corpuscular Hemoglobin Concent 31.4g/dl Red Cell Distribution Width 14.1% Platelet Count 19697^3/UL Mean Platelet Volume 11.0fl Neutrophils % 63.4% Lymphocytes % 23.6% Monocytes % 8.5% Eosinophils % 3.4% Basophils % 0.7% Nucleated Red Blood Cells % 0.0/100WBC Neutrophils # 7.010^3/ul Lymphocytes # 2.610^3/ul Monocytes # 0.910^3/ul Eosinophils # 0.410^3/ul Basophils # 0.110^3/ul Nucleated Red Blood Cells # 0.010^3/ul Prothrombin Time 13.2Sec Prothrombin Time Ratio 1.0 INR International Normalized Ratio 1.00 Activated Partial Thromboplast Time 27.0Sec Sodium Level 140mmol/L Potassium Level 4.3mmol/L Chloride Level 106mmol/L Carbon Dioxide Level 24mmol/L Anion Gap 14 Blood Urea Nitrogen 16mg/dl Creatinine 0.89mg/dl Glucose Level 88mg/dl Calcium Level 9.6mg/dl Total Bilirubin 0.2mg/dl Direct Bilirubin 0.00mg/dl Indirect Bilirubin 0.2mg/dl Aspartate Amino Transf (AST/SGOT) 29IU/L Alanine Aminotransferase (ALT/SGPT) 37IU/L Alkaline Phosphatase 58IU/L Total Protein 7.3g/dl Albumin 4.6g/dl Globulin 2.70g/dl Albumin/Globulin Ratio 1.70 Current Medications Medications (Trade) Dose Ordered Sig/Miguel Route PRN Reason Start Time Stop Time Status Last Admin Dose Admin Morphine Sulfate (morphine) 4 mg ONCE STAT IV 08/25/16 17:58 08/25/16 18:00 DC 08/25/16 18:17 Ondansetron HCl (Zofran Inj) 4 mg ONCE STAT IV 08/25/16 17:58 08/25/16 18:00 DC 08/25/16 18:16 IV Flush 10 ml 10 ml STK-MED ONCE .ROUTE 08/25/16 18:57 08/25/16 18:58 DC 08/25/16 19:36 Sodium Chloride (NS) 100 ml @ ud STK-MED ONCE .ROUTE 08/25/16 18:57 08/25/16 18:58 DC 08/25/16 19:36 Iohexol (Omnipaque 300mg/ ml) 150 ml STK-MED ONCE .ROUTE 08/25/16 18:57 08/25/16 18:58 DC 08/25/16 19:36 PROCEDURE: CT Abdomen and Pelvis with Contrast CLINICAL INDICATION: Rectal pain, rule out abscess TECHNIQUE: Transaxial images were obtained through the abdomen and pelvis on a multi-slice scanner following the intravenous administration of iodinated contrast. No oral contrast had previously been given. Sagittal and coronal re- formations were subsequently reconstructed. One or more of the following dose reduction techniques were used: - Automated exposure control. - Adjustment of the mA and/or kV according to patient size. - Use of iterative reconstruction technique. Radiation dose: CTDIvol = 10.60 mGy; DLP = 728.32 mGy-cm. COMPARISON: No prior studies are available for comparison. FINDINGS: Lung bases: The visualized lung bases appear unremarkable. Liver: Normal in size and in attenuation. There is no focal lesion. The hepatic veins and portal veins appear patent. Gallbladder: The wall is not thickened. No radiopaque stones are identified. Bile ducts: The intra and extrahepatic bile ducts are normal in caliber. Pancreas: Appears normal with no mass or inflammation evident. Spleen: Normal in size with no focal lesion. Adrenals: Normal with no mass identified. Kidneys, ureters and bladder: The kidneys enhance normally and are normal in size and there is no mass, pathological calcification, or hydronephrosis evident. There is no perinephric stranding. The ureters are normal in caliber and no ureteroliths are identified. The bladder appears unremarkable. Reproductive organs: Unremarkable. Stomach, bowel, and mesentery: The stomach appears unremarkable. There is no evidence of bowel obstruction or inflammation. The rectum appears unremarkable and no perirectal or perineal abscess is evident. Appendix: A normal vermiform appendix is evident. Peritoneum: No free intraperitoneal fluid or air is identified. Aorta: Normal in caliber with no aneurysmal dilatation. IVC: Unremarkable. Lymph nodes: No pathologically enlarged nodes are identified. Osseous structures: The osseous elements appear intact. IMPRESSION: Unremarkable CT scan of the abdomen and pelvis. Physician Diana Date Time Electronically viewed and signed by Physician Diana on 08/25/2016 20:21 RH/ CC: LALO BARNES WELDING PANTOGRAPH OPERATOR Procedures/MDM 31-year-old male presented ED today with rectal pain. He has some erythema tenderness in the gluteal fold along with rectal wall tenderness. I have concern for perianal or perirectal abscess. CT abdomen and pelvis with IV contrast was obtained. No abscess was noted on CT. since patient has already been treated with various antibiotics for acute prostatitis in the last 2 weeks , I doubt that he has acute prostatitis. It is uncertain the cause of patient' s rectal pain at this time. Differential include but not limited to anal fissure, hemorrhoids, rectal wall prolapse. Patient had been given referral to a urologist and keying machine operator on his previous visit. Patient is currently awaiting appointment with the specialist. Advised patient to follow-up with a specialist for further evaluation. Housing long-term resources provided for the patient. Patient appears well, stable for discharge and outpatient management. Medical decision making shared with patient and family. Education provided to patient and family. Patient and family expressed understanding of the plan. Medications on discharge: Ibuprofen, Preparation H suppository. Follow-up: Primary care provider in 2-3 days or return to ED if worse. Departure Diagnosis: Primary Impression: Anal or rectal pain Condition: Stable Patient Instructions: Understanding Rectal Bleeding Referrals: [facility] YOU HAVE RECEIVED A MEDICAL SCREENING EXAM AND THE RESULTS INDICATE THAT YOU DO NOT HAVE A CONDITION THAT REQUIRES URGENT TREATMENT IN THE EMERGENCY DEPARTMENT. FURTHER EVALUATION AND TREATMENT OF YOUR CONDITION CAN WAIT UNTIL YOU ARE SEEN IN YOUR DOCTORS OFFICE WITHIN THE NEXT 1-2 DAYS. IT IS YOUR RESPONSIBILITY TO MAKE AN APPOINTMENT FOR FOLOW-UP CARE. IF YOU HAVE A PRIMARY DOCTOR --you should call your primary doctor and schedule an appointment IF YOU DO NOT HAVE A PRIMARY DOCTOR YOU CAN CALL OUR PHYSICIAN REFERRAL HOTLINE AT IF YOU CAN NOT AFFORD TO SEE A PHYSICIAN YOU CAN CHOSE FROM THE FOLLOWING [facility] [address]. [facility] [address] [facility] [facility] [address] [facility] [address] [facility] [address]. [facility]. [address] Additional Instructions: Call your primary care doctor TOMORROW for an appointment during the next 2-3 days.See the doctor sooner or return here if your condition worsens before your appointment time. LALO BARNES NP Aug 26, 2016 00:34
== END 2016-08-25 20:58 | disposition home or self-care (01) ==
LOC: FTE 16:28
DX: K62.89 Other specified diseases of anus and rectum (principal); F17.210 Nicotine dependence, cigarettes, uncomplicated
CPT/HCPCS: 74177; 80053; 85025; 85610; 85730; J2270; J2405; Q9967; Z7610; 96374; 96375

== ENCOUNTER 2016-08-31 22:58 | Emergency (ER) | payer OTHER ==
[~2016-08-31] VITALS: Ht 177.8 cm; Wt 94.0 kg
[~2016-08-31 22:58] MED LIST changes: +PHEN1SUP80 PR
[2016-08-31 23:12] VITALS: Ht 177.8 cm; Wt 94.0 kg
[2016-08-31] MEDS ORDERED: ONDANSETRON 4 MG INJ IV STA (23:47)
[2016-08-31] MEDS ORDERED: SOD CHLORIDE 0.9% 1,000 ML IV STA (23:47)
[2016-09-01] MEDS ORDERED: morphine 4 MG/ML VIAL ONE (00:16)
[2016-09-01] MEDS ORDERED: morphine 2 MG INJ ONE (00:16)
[2016-09-01 00:29] LABS: ADD SCAN DIFF NO
[2016-09-01] MEDS ORDERED: morphine 10 MG INJ IV ONE ×2 (00:30→02:00)
[2016-09-01 00:33] LABS: BASOPHILS % 0.1 % (0.0-2.0); EOSINOPHILS # 0.3 10^3/ul (0.0-0.5); EOSINOPHILS % 2.4 % (0.0-7.0); HEMATOCRIT 45.5 % (42.0-52.0); HEMOGLOBIN 14.3 g/dl (14.0-18.0); LYMPHOCYTES % 7.2 % (15.0-51.0); MEAN CORPUSCULAR HEMOGLOBIN 27.6 pg (29.0-33.0); MEAN CORPUSCULAR HGB CONC 31.4 g/dl (32.0-37.0); MEAN CORPUSCULAR VOLUME 87.7 fl (82.0-101.0); MEAN PLATELET VOLUME 10.9 fl (7.4-10.4); MONOCYTE # 0.5 10^3/ul (0.3-0.9); MONOCYTES % 3.6 % (0.0-11.0); NEUTROPHIL # 12.5 10^3/ul (1.6-7.5); NEUTROPHILS % 86.1 % (39.0-77.0); PLATELET COUNT 255 10^3/UL (140-415); RED BLOOD COUNT 5.19 10^6/ul (4.70-6.10); RED CELL DISTRIBUTION WIDTH 14.1 % (11.5-14.5); WHITE BLOOD COUNT 14.5 10^3/ul (4.8-10.8)
[2016-09-01 00:59] LABS: ALBUMIN 4.9 g/dl (3.3-4.9); ALBUMIN/GLOBULIN RATIO 1.88; BILIRUBIN,INDIRECT 0.8 mg/dl (0-1.1); BILIRUBIN,TOTAL 0.8 mg/dl (0.2-1.3); CALCIUM 9.2 mg/dl (8.4-10.2); CREATININE 1.03 mg/dl (0.61-1.24); TOTAL PROTEIN 7.5 g/dl (6.1-8.1)
[2016-09-01] MEDS ORDERED: SOD CHLORIDE 0.9% 100 ML ONE (01:29)
[2016-09-01] MEDS ORDERED: IOHEXOL 300MG/ML 150 ML BTL ONE (01:29)
--- NOTE | 2016-09-01 04:00 | RADRPT ---
PROCEDURE: CT abdomen and pelvis with intravenous contrast. CLINICAL INDICATION: Pain. TECHNIQUE: CT of the abdomen/pelvis was performed utilizing axial images with reconstructions in s agittal and coronal planes after uneventful administration of 90 cc Omnipaque 300. The administered radiation dose is CTDI 10.7 mGy, DLP 720 mGy-cm. COMPARISON: 08/25/2016 FINDINGS: Visualized Chest: The visualized lung bases are clear. Abdomen: The liver, spleen, pancreas, gallbladder,and adrenal glands are unremarkable. The kidneys are without hydronephrosis. No definite urinary calculi are seen. There is no evidence of bowel obstruction. The appendix is normal. No intra-abdominal free air is seen. There is no evidence of intra-abdominal adenopathy or free fluid. Pelvis: There is no evidence of pelvic adenopathy or free fluid. The prostate and bladder are unremarkable. Osseous structures: Unremarkable. IMPRESSION: No acute findings. RPTAT: HIKT .Hemant Devine MD, MD Date Time Electronically viewed and signed by .Hemant Devine MD, on 09/01/2016 04:00 .T/
[2016-09-01] MEDS ORDERED: METO10TA92 PO (05:28)
[2016-09-01 05:29] VITALS: BP 119/74; PULSE 76; RESP 12; TEMP 98.3
--- NOTE | 2016-09-01 05:29 | ERD ---
ER Documentation Chief Complaint Date/Time DATE: 09/01/16 TIME: 05:29 Chief Complaint lower abd pain x 1 week HPI 31-year-old homeless male presenting with lower abdominal pain with associated nausea and vomiting. Patient is yelling in pain and refuses to answer any questions. ROS Limited as the patient is noncooperative Medications Home Meds Active Scripts Metoclopramide* (Reglan*) 10 Mg Tablet, 10 MG PO Q6 Y for NAUSEA AND/OR VOMITING , #10 TAB Prov:MYRTLE BELTRE MD 09/01/16 Doxycycline Hyclate* (Doxycycline Hyclate*) 100 Mg Tablet.dr, 100 MG PO BID for 14 Days, TAB Prov:RYAN GOVEA MD 08/22/16 Hydrocodone/Acetaminophen ([place] 10-325 Tablet) 1 Each Tablet, 1 TAB PO Q6H Y for PAIN, #15 TAB Prov:RYAN GOVEA MD 08/22/16 Albuterol Sulfate* (Proair HFA*) 8.5 Gm Hfa.aer.ad, 2 PUFF INH Q4H Y for WHEEZING AND SOB, #1 INHALER Prov:GRIFFIN COHEN DO 07/24/15 Discontinued Scripts Phenylephrine HCl/[place] Butter* (Preparation H* Suppository) 1 Each Supp.rect, 1 EACH ME TID, #30 SUPP.RECT Prov:LALO BARNES NP 08/25/16 Prednisone* (Prednisone*) 20 Mg Tab, 60 MG PO DAILY for 3 Days, TAB Prov:LALO BARNES NP 08/25/16 Ibuprofen* (Motrin*) 600 Mg Tab, 600 MG PO Q6H Y for PAIN AND OR ELEVATED TEMP, #30 TAB Prov:ANGEL TOBAR NP 08/24/16 Cephalexin* (Keflex*) 500 Mg Capsule, 500 MG PO QID for 5 Days, CAP Prov:ANGEL TOBAR NP 08/24/16 Ibuprofen* (Motrin*) 600 Mg Tab, 600 MG PO Q6, #30 TAB Prov:RYAN GOVEA MD 08/22/16 Ibuprofen* (Motrin*) 600 Mg Tab, 600 MG PO Q8 Y for PAIN, #30 TAB Prov:CHANTEL HAY MD 06/24/16 Naproxen* (Naprosyn*) 500 Mg Tablet, 500 MG PO BID Y for PAIN AND/OR INFLAMMATION, #30 TAB Prov:PILAR HSU PA-C 06/08/16 Permethrin* (Elimite*) 5% Cr, 1 APPLIC TOP ONCE for 1 Day, TUB Prov:RAMANA MTZC 12/08/15 Clotrimazole* (Clotrimazole* AF) 1% - 30 Gm Cream.gm., 1 APPLIC TOP BID for 7 Days, TUB Prov:RAMANA MTZ PA-C 12/08/15 Permethrin* (Elimite*) 5% Cr, 1 APPLIC TOP ONCE, #1 TUB Prov:IMELDA KENNEDY PA-C 11/25/15 Clotrimazole* (Clotrimazole* AF) 1% - 30 Gm Cream.gm., 1 APPLIC TOP BID for 7 Days, #1 TUB Prov:IMELDA KENNEDY PA-C 11/25/15 Clotrimazole* (Clotrimazole* AF) 1% - 30 Gm Cream.gm., 1 APPLIC TOP BID for 7 Days, TUB Prov:OZZIE RODGERS 11/16/15 Clotrimazole* (Clotrimazole* AF) 1% - 30 Gm Cream.gm., 1 APPLIC TOP BID for 7 Days, TUB Prov:JASON VIERA PA-C 11/13/15 Mupirocin* (Bactroban*) 2% -22 Gram Oint...g., 1 APPLIC TOP BID for 7 Days, #1 TUB 0 Refills Prov:ANASTASIIA MOTLEY PA-C 11/09/15 Ibuprofen* (Motrin*) 400 Mg Tab, 400 MG PO Q6 for 7 Days, #30 TAB 0 Refills Prov:ANASTASIIA MOTLEY PA-C 11/09/15 Bacitracin-Polymyxin* (Polysporin* Topical) 28.35 Gm Oint, 1 APPLIC TOP BID for 10 Days, #10 TUB Prov:RAMANA MTZ PA-C 11/07/15 Methylprednisolone* (Medrol* DOSE PACK) 4 Mg/Dose-Pack Tab.ds.pk, 4 MG PO . DIRECTED for 6 Days, PACKET Prov:OZZIE RODGERS 11/03/15 Albuterol Sulfate* (Proair HFA*) 8.5 Gm Hfa.aer.ad, 2 PUFF INH Q4, #1 INHALER Prov:OZZIE RODGERS 11/03/15 Cephalexin* (Keflex*) 500 Mg Capsule, 500 MG PO QID for 7 Days, CAP Prov:OZZIE RODGERS 11/03/15 Albuterol Sulfate* (Ventolin HFA*) 18 Gm Hfa.aer.ad, 2 PUFF INHALATION Q6H for 30 Days, #1 INHALER 0 Refills Prov:ANASTASIIA MOTLEY PA-C 10/17/15 Guaifenesin-Dextromethorphan* (Robitussin* DM) 100MG/10MG/5ML Syrup, 5 ML PO Q6H Y for COUGH for 6 Days, #120 ML 0 Refills Prov:ANASTASIIA MOTLEY PA-C 10/17/15 Cyclobenzaprine Hcl* (Cyclobenzaprine Hcl*) 10 Mg Tablet, 10 MG PO Q8 Y for muscle spasm, #10 TAB Prov:GRIFFIN COHEN DO 07/24/15 Methylprednisolone* (Medrol* DOSE PACK) 4 Mg/Dose-Pack Tab.ds.pk, 4 MG PO . DIRECTED, #1 PACKET Prov:GRIFFIN COHEN DO 07/24/15 Naproxen* (Naproxen*) 500 Mg Tablet, 500 MG PO BID Y for PAIN, #20 TAB Prov:VICKIGRIFFIN DO 07/11/15 Diclofenac Sodium* (Voltaren* Gel) 1% -100 Gm Gel, 2 GM TOP QID, #1 TUB Prov:GRIFFIN COHEN DO 07/11/15 Cyclobenzaprine Hcl* (Cyclobenzaprine Hcl*) 10 Mg Tablet, 10 MG PO TID, #15 TAB Prov:VICKIGRIFFIN DO 07/11/15 Guaifenesin-Dextromethorphan* (Mucinex* DM) 600-30 Mg Tabsr, 1 TAB PO Q12, #30 TAB Prov:JAZMIN SANTIAGO PA-C 05/29/15 Prednisone* (Prednisone*) 20 Mg Tab, 60 MG PO DAILY for 5 Days, TAB Prov:JAZMIN SANTIAGO PA-C 05/29/15 Benzonatate* (Tessalon Perle*) 100 Mg Capsule, 100 MG PO Q8H Y for COUGH, #30 CAP Prov:KRISTY GARCIA MD 05/23/15 Albuterol Sulfate* (Ventolin HFA*) 18 Gm Hfa.aer.ad, 2 PUFF INHALATION Q4H, #1 INHALER Prov:KRISTY GARCIA MD 05/23/15 Azithromycin* (Zithromax*) 250 Mg Tablet, 250 MG PO .ZPACK DIRECTED, #6 TAB TAKE 500 MG (2 TABS) THE FIRST DAY THEN 250 MG (1 TAB) DAYS 2-5 Prov:KRISTY GARCIA MD 05/23/15 Allergies Allergies: Coded Allergies: No Known Allergy (Unverified , 08/22/16) PMhx/Soc Medical and Surgical Hx: pt denies Medical Hx, pt denies Surgical Hx History of Surgery: No Anesthesia Reaction: No Hx Neurological Disorder: No Hx Respiratory Disorders: No Hx Cardiac Disorders: No Hx Psychiatric Problems: Yes (on psych meds, depression) Hx Miscellaneous Medical Probl: No Hx Alcohol Use: No Hx Substance Use: No Hx Tobacco Use: No (quit) Smoking Status: Former smoker FmHx Family History: other (Unable to obtain) Physical Exam Vitals Vital Signs Date Time Temp Pulse Resp B/P Pulse Ox O2 Delivery O2 Flow Rate FiO2 09/01/16 05:29 98.3 76 12 119/74 98 09/01/16 00:44 90 16 124/66 100 Room Air 08/31/16 23:12 98.2 103 20 122/76 97 Physical Exam Const: Screaming in pain, covered with vomit, disheveled, dirty clothing Head: Atraumatic Eyes: Normal Conjunctiva ENT: Normal External Ears, Nose and Mouth. Neck: Full range of motion Resp: Clear to auscultation bilaterally Cardio: Regular rate and rhythm, no murmurs Abd: Soft, severe tenderness in the suprapubic area, no rebound, positive guarding, no masses, non distended. Normal bowel sounds Skin: No petechiae or rashes Back: No midline or flank tenderness Ext: No cyanosis, or edema Neur: Awake and alert Psych: Agitated and anxious Result Diagram: 09/01/16 0000 09/01/16 0000 Results 24 hrs Laboratory Tests Test 09/01/16 00:00 White Blood Count 14.510^3/ul Red Blood Count 5.1910^6/ul Hemoglobin 14.3g/dl Hematocrit 45.5% Mean Corpuscular Volume 87.7fl Mean Corpuscular Hemoglobin 27.6pg Mean Corpuscular Hemoglobin Concent 31.4g/dl Red Cell Distribution Width 14.1% Platelet Count 21052^3/UL Mean Platelet Volume 10.9fl Neutrophils % 86.1% Lymphocytes % 7.2% Monocytes % 3.6% Eosinophils % 2.4% Basophils % 0.1% Nucleated Red Blood Cells % 0.0/100WBC Neutrophils # 12.510^3/ul Lymphocytes # 1.010^3/ul Monocytes # 0.510^3/ul Eosinophils # 0.310^3/ul Basophils # 0.010^3/ul Nucleated Red Blood Cells # 0.010^3/ul Sodium Level 139mmol/L Potassium Level 4.0mmol/L Chloride Level 101mmol/L Carbon Dioxide Level 29mmol/L Anion Gap 13 Blood Urea Nitrogen 13mg/dl Creatinine 1.03mg/dl Glucose Level 86mg/dl Calcium Level 9.2mg/dl Total Bilirubin 0.8mg/dl Direct Bilirubin 0.00mg/dl Indirect Bilirubin 0.8mg/dl Aspartate Amino Transf (AST/SGOT) 40IU/L Alanine Aminotransferase (ALT/SGPT) 41IU/L Alkaline Phosphatase 63IU/L Total Protein 7.5g/dl Albumin 4.9g/dl Globulin 2.60g/dl Albumin/Globulin Ratio 1.88 Current Medications Medications (Trade) Dose Ordered Sig/Miguel Route PRN Reason Start Time Stop Time Status Last Admin Dose Admin Sodium Chloride (NS) 1,000 ml @ 1,000 mls/hr Q1H STAT IV 08/31/16 23:47 09/01/16 00:46 DC 09/01/16 00:01 Ondansetron HCl (Zofran Inj) 4 mg ONCE STAT IV 08/31/16 23:47 08/31/16 23:49 DC 09/01/16 00:01 Morphine Sulfate (morphine) 6 mg ONCE ONCE IV 09/01/16 00:30 09/01/16 00:31 DC 09/01/16 00:24 Morphine Sulfate (morphine) 6 mg ONCE ONCE IV 09/01/16 02:00 09/01/16 02:01 DC 09/01/16 01:59 Procedures/MDM Labs showed no significant abnormalities other than mild leukocytosis CT abdomen and pelvis done showing no acute abnormalities Urinalysis ordered but patient refusing to give sample MDM Patient is presenting with severe lower abdominal pain with stable vitals. I reviewed his records and it seems like the patient has had multiple visits to our ER for similar symptoms. According to the nurse, he has paperwork at bedside from yesterday's ER visit to [place]. His workup did not show any significant abnormalities that would explain his pain. The patient is showing pain medication seeking behavior as after he is given morphine, his pain seems to completely resolve and he goes to sleep. At this time I think the patient is stable for discharge. Reglan prescription was given for nausea and vomiting. Patient will be discharged with return precautions. He was provided a list of community clinics. Departure Diagnosis: Primary Impression: Lower abdominal pain Additional Impression: Nausea and vomiting Vomiting type: unspecified Vomiting Intractability: non-intractable Qualified Code: R11.2 - Non-intractable vomiting with nausea, unspecified vomiting type Condition: Stable Patient Instructions: Nausea and Vomiting-Adult, Abdominal Pain, Unkown Cause, (Male) Referrals: [facility] YOU HAVE RECEIVED A MEDICAL SCREENING EXAM AND THE RESULTS INDICATE THAT YOU DO NOT HAVE A CONDITION THAT REQUIRES URGENT TREATMENT IN THE EMERGENCY DEPARTMENT. FURTHER EVALUATION AND TREATMENT OF YOUR CONDITION CAN WAIT UNTIL YOU ARE SEEN IN YOUR DOCTORS OFFICE WITHIN THE NEXT 1-2 DAYS. IT IS YOUR RESPONSIBILITY TO MAKE AN APPOINTMENT FOR FOLOW-UP CARE. IF YOU HAVE A PRIMARY DOCTOR --you should call your primary doctor and schedule an appointment IF YOU DO NOT HAVE A PRIMARY DOCTOR YOU CAN CALL OUR PHYSICIAN REFERRAL HOTLINE AT IF YOU CAN NOT AFFORD TO SEE A PHYSICIAN YOU CAN CHOSE FROM THE FOLLOWING [facility] [address] [facility] [address] [facility] [address] [facility] [address] [facility] [facility] [address] [facility] [facility] [address] MYRTLE ALVA MD Sep 01, 2016 05:29
[2016-09-02] MEDS ORDERED: HYDR-906 PO (16:37)
== END 2016-09-01 06:09 | disposition home or self-care (01) ==
LOC: E/R 22:58
DX: R10.30 Lower abdominal pain, unspecified (principal); R11.2 Nausea with vomiting, unspecified; Z87.891 Personal history of nicotine dependence
CPT/HCPCS: 74177; 80053; 85025; 93005; J2270; J2405; J7030; Q9967; Z7610; 36415; 96374; 96375; 96376

== ENCOUNTER 2016-09-02 16:17 | Emergency (ER) | payer OTHER ==
[~2016-09-02] VITALS: Ht 193 cm; Wt 91.5 kg
[~2016-09-02 16:17] MED LIST changes: -ALBU18HF INHALATION; -AZIT250T94 PO; -BENZ100C70 PO; -CEPH-443 PO; -CLOT30CR24 TOP; -CYCL-319 PO; -DICL100G37 TOP; -ELIM TOP; -GUAI-47 PO; -IBUP-1542 PO; -IBUP400T22 PO; -MED4DP PO; +METO10TA92 PO; -MUPI22OI2 TOP; -NAPR-260 PO; -NAPR-688 PO; -PHEN1SUP80 PR; -POLY30OI TOP; -PRED20TA PO; -UDROBDM PO
[2016-09-02 16:20] VITALS: Ht 193 cm; Wt 91.5 kg
[2016-09-02] MEDS ORDERED: HYDR-906 PO (16:37)
--- NOTE | 2016-09-02 16:37 | ERD ---
ER Documentation Chief Complaint Date/Time DATE: 09/02/16 TIME: 16:35 Chief Complaint abdominal pain x 4 days HPI This is a 31-year-old male presents to the emergency room for recurrent abdominal pain. The patient has been seen multiple times in the past and has had multiple negative workups. He states his abdominal pain has been present for 3 months duration and localizes to the lower portion of his abdomen. The patient is declining any blood work at this time, declined to give a urine sample. Patient states that he wants "morphine for pain" ROS All systems reviewed and are negative except as per history of present illness. Medications Home Meds Active Scripts Metoclopramide* (Reglan*) 10 Mg Tablet, 10 MG PO Q6 Y for NAUSEA AND/OR VOMITING , #10 TAB Prov:MYRTLE BELTRE MD 09/01/16 Doxycycline Hyclate* (Doxycycline Hyclate*) 100 Mg Tablet.dr, 100 MG PO BID for 14 Days, TAB Prov:RYAN GOVEA MD 08/22/16 Hydrocodone/Acetaminophen ([place] 10-325 Tablet) 1 Each Tablet, 1 TAB PO Q6H Y for PAIN, #15 TAB Prov:RYAN GOVEA MD 08/22/16 Albuterol Sulfate* (Proair HFA*) 8.5 Gm Hfa.aer.ad, 2 PUFF INH Q4H Y for WHEEZING AND SOB, #1 INHALER Prov:GRIFFIN COHEN DO 07/24/15 Discontinued Scripts Phenylephrine HCl/[place] Butter* (Preparation H* Suppository) 1 Each Supp.rect, 1 EACH SC TID, #30 SUPP.RECT Prov:LALO BARNES NP 08/25/16 Prednisone* (Prednisone*) 20 Mg Tab, 60 MG PO DAILY for 3 Days, TAB Prov:LALO BARNES NP 08/25/16 Ibuprofen* (Motrin*) 600 Mg Tab, 600 MG PO Q6H Y for PAIN AND OR ELEVATED TEMP, #30 TAB Prov:ANGEL TOBAR NP 08/24/16 Cephalexin* (Keflex*) 500 Mg Capsule, 500 MG PO QID for 5 Days, CAP Prov:ANGEL TOBAR NP 08/24/16 Ibuprofen* (Motrin*) 600 Mg Tab, 600 MG PO Q6, #30 TAB Prov:RYAN GOVEA MD 08/22/16 Ibuprofen* (Motrin*) 600 Mg Tab, 600 MG PO Q8 Y for PAIN, #30 TAB Prov:CHANTEL HAY MD 06/24/16 Naproxen* (Naprosyn*) 500 Mg Tablet, 500 MG PO BID Y for PAIN AND/OR INFLAMMATION, #30 TAB Prov:PILAR HSUC 06/08/16 Permethrin* (Elimite*) 5% Cr, 1 APPLIC TOP ONCE for 1 Day, TUB Prov:RAMANA MTZC 12/08/15 Clotrimazole* (Clotrimazole* AF) 1% - 30 Gm Cream.gm., 1 APPLIC TOP BID for 7 Days, TUB Prov:RAMANA MTZC 12/08/15 Permethrin* (Elimite*) 5% Cr, 1 APPLIC TOP ONCE, #1 TUB Prov:IMELDA KENNEDY PA-C 11/25/15 Clotrimazole* (Clotrimazole* AF) 1% - 30 Gm Cream.gm., 1 APPLIC TOP BID for 7 Days, #1 TUB Prov:IMELDA KENNEDY PA-C 11/25/15 Clotrimazole* (Clotrimazole* AF) 1% - 30 Gm Cream.gm., 1 APPLIC TOP BID for 7 Days, TUB Prov:OZZIE RODGERS 11/16/15 Clotrimazole* (Clotrimazole* AF) 1% - 30 Gm Cream.gm., 1 APPLIC TOP BID for 7 Days, TUB Prov:JASON VIERA PA-C 11/13/15 Mupirocin* (Bactroban*) 2% -22 Gram Oint...g., 1 APPLIC TOP BID for 7 Days, #1 TUB 0 Refills Prov:ANASTASIIA MOTLEY PA-C 11/09/15 Ibuprofen* (Motrin*) 400 Mg Tab, 400 MG PO Q6 for 7 Days, #30 TAB 0 Refills Prov:ANASTASIIA MOTLEY PA-C 11/09/15 Bacitracin-Polymyxin* (Polysporin* Topical) 28.35 Gm Oint, 1 APPLIC TOP BID for 10 Days, #10 TUB Prov:RAMANA MTZ PA-C 11/07/15 Methylprednisolone* (Medrol* DOSE PACK) 4 Mg/Dose-Pack Tab.ds.pk, 4 MG PO . DIRECTED for 6 Days, PACKET Prov:OZZIE RODGERS C 11/03/15 Albuterol Sulfate* (Proair HFA*) 8.5 Gm Hfa.aer.ad, 2 PUFF INH Q4, #1 INHALER Prov:OZZIE RODGERS C 11/03/15 Cephalexin* (Keflex*) 500 Mg Capsule, 500 MG PO QID for 7 Days, CAP Prov:OZZIE RODGERS C 11/03/15 Albuterol Sulfate* (Ventolin HFA*) 18 Gm Hfa.aer.ad, 2 PUFF INHALATION Q6H for 30 Days, #1 INHALER 0 Refills Prov:ANASTASIIA MOTLEY PA-C 10/17/15 Guaifenesin-Dextromethorphan* (Robitussin* DM) 100MG/10MG/5ML Syrup, 5 ML PO Q6H Y for COUGH for 6 Days, #120 ML 0 Refills Prov:ANASTASIIA MOTLEY PA-C 10/17/15 Cyclobenzaprine Hcl* (Cyclobenzaprine Hcl*) 10 Mg Tablet, 10 MG PO Q8 Y for muscle spasm, #10 TAB Prov:GRIFFIN COHEN DO 07/24/15 Methylprednisolone* (Medrol* DOSE PACK) 4 Mg/Dose-Pack Tab.ds.pk, 4 MG PO . DIRECTED, #1 PACKET Prov:GRIFFIN COHEN DO 07/24/15 Naproxen* (Naproxen*) 500 Mg Tablet, 500 MG PO BID Y for PAIN, #20 TAB Prov:GRIFFIN COHEN DO 07/11/15 Diclofenac Sodium* (Voltaren* Gel) 1% -100 Gm Gel, 2 GM TOP QID, #1 TUB Prov:GRIFFIN COHEN DO 07/11/15 Cyclobenzaprine Hcl* (Cyclobenzaprine Hcl*) 10 Mg Tablet, 10 MG PO TID, #15 TAB Prov:GRIFFIN COHEN DO 07/11/15 Guaifenesin-Dextromethorphan* (Mucinex* DM) 600-30 Mg Tabsr, 1 TAB PO Q12, #30 TAB Prov:JAZMIN SANTIAGO PA-C 05/29/15 Prednisone* (Prednisone*) 20 Mg Tab, 60 MG PO DAILY for 5 Days, TAB Prov:JAZMNI SANTIAGO PA-C 05/29/15 Benzonatate* (Tessalon Perle*) 100 Mg Capsule, 100 MG PO Q8H Y for COUGH, #30 CAP Prov:KRISTY GARCIA MD 05/23/15 Albuterol Sulfate* (Ventolin HFA*) 18 Gm Hfa.aer.ad, 2 PUFF INHALATION Q4H, #1 INHALER Prov:KRISTY GARCIA MD 05/23/15 Azithromycin* (Zithromax*) 250 Mg Tablet, 250 MG PO .ZPACK DIRECTED, #6 TAB TAKE 500 MG (2 TABS) THE FIRST DAY THEN 250 MG (1 TAB) DAYS 2-5 Prov:KRISTY GARCIA MD 05/23/15 Allergies Allergies: Coded Allergies: No Known Allergy (Unverified , 08/22/16) PMhx/Soc History of Surgery: No Anesthesia Reaction: No Hx Neurological Disorder: No Hx Respiratory Disorders: No Hx Cardiac Disorders: No Hx Psychiatric Problems: Yes (on psych meds, depression) Hx Miscellaneous Medical Probl: No Hx Alcohol Use: No Hx Substance Use: No Hx Tobacco Use: No (quit) Physical Exam Vitals Vital Signs Date Time Temp Pulse Resp B/P Pulse Ox O2 Delivery O2 Flow Rate FiO2 09/02/16 16:20 98.5 96 18 139/69 98 Physical Exam Const: No acute distress Head: Atraumatic Eyes: Normal Conjunctiva ENT: Normal External Ears, Nose and Mouth. Neck: Full range of motion..~ No meningismus. Resp: Clear to auscultation bilaterally Cardio: Regular rate and rhythm, no murmurs Abd: Soft, non tender, non distended. Normal bowel sounds Skin: No petechiae or rashes Back: No midline or flank tenderness Ext: No cyanosis, or edema Neur: Awake and alert Psych: Normal Mood and Affect Procedures/MDM This 31-year-old male presents to the ER for evaluation of abdominal pain. This patient's been seen multiple times in the past for the same complaint and had multiple negative workups. This patient is refusing. He has no signs of acute abdomen, no signs of surgical abdomen. The patient was given a p.o. [place]im[place] will be discharged home at this time with a prescription for Med[place]. Departure Diagnosis: Primary Impression: Abdominal pain Condition: Stable GILDA JOSHUA DO Sep 02, 2016 16:37
[2016-09-02] MEDS ORDERED: HYDROCODONE/APAP (10/325) TAB PO ONE (17:00)
== END 2016-09-02 17:03 | disposition home or self-care (01) ==
LOC: FTE 16:17
DX: R10.30 Lower abdominal pain, unspecified (principal); Z87.891 Personal history of nicotine dependence
CPT/HCPCS: Z7502; Z7610; 99283

== ENCOUNTER 2016-12-25 02:33 | Emergency (ER) | payer OTHER ==
[~2016-12-25] VITALS: Ht 193 cm; Wt 91.0 kg
[~2016-12-25 02:33] MED LIST changes: +HYDR-906 PO
[2016-12-25 02:36] VITALS: Ht 193 cm; Wt 91.0 kg
--- NOTE | 2016-12-25 03:09 | ERD ---
ER Documentation Chief Complaint Date/Time DATE: 12/25/16 TIME: 03:06 Chief Complaint rash both legs x 2 days HPI 31-year-old male presents emergency department for right leg rash to bilateral lower extremity for 2 days. Denies headache, dizziness, blurred vision, neck pain, shoulder pain, chest pain , back pain, difficulty walking when lying flat, abdominal pain, nausea, vomiting, constipation, diarrhea, urinary symptoms, loss of bowel bladder control, recent long travel, numbness or tingling sensation, trauma, injury, falls, recent exposure to any illness, recent antibiotic use in the last 3 months, fever, chills. No known drug allergies. No past medical history. No surgeries. Does not take any prescription medication at home. Smokes half a pack of cigarettes a day. Occasional drink alcoholic beverages. Denies use of illegal drugs. ROS All systems reviewed and are negative except as per history of present illness. Medications Home Meds Active Scripts Hydrocortisone* Topical (Hydrocortisone* Topical) 2.5%-28.3 Gm Cream..g., 1 APPLIC TOP BID, #1 TUB Prov:PASILABAN,MOLINAAR F 12/25/16 Cephalexin* (Keflex*) 500 Mg Capsule, 500 MG PO QID for 5 Days, CAP Prov:PASILABAN,KLAR F 12/25/16 Diphenhydramine Hcl* (Benadryl*) 25 Mg Cap, 25 MG PO Q8 Y for ITCHING/RASH, #30 TAB Prov:PASILABAN,KLAR F 12/25/16 Ibuprofen* (Ibuprofen*) 800 Mg Tablet, 800 MG PO Q8, #20 TAB Prov:PASILABANMOLINAAR F 12/25/16 Hydrocodone/Acetaminophen ([place] 5-325 Tablet) 1 Each Tablet, 1 EACH PO Q12 for 2 Days, #4 TAB Prov:GILDA JOSHAU DO 09/02/16 Metoclopramide* (Reglan*) 10 Mg Tablet, 10 MG PO Q6 Y for NAUSEA AND/OR VOMITING , #10 TAB Prov:MYRTLE BELTRE MD 09/01/16 Doxycycline Hyclate* (Doxycycline Hyclate*) 100 Mg Tablet.dr, 100 MG PO BID for 14 Days, TAB Prov:RYAN GOVEA MD 08/22/16 Hydrocodone/Acetaminophen ([place] 10-325 Tablet) 1 Each Tablet, 1 TAB PO Q6H Y for PAIN, #15 TAB Prov:RYAN GOVEA MD 08/22/16 Albuterol Sulfate* (Proair HFA*) 8.5 Gm Hfa.aer.ad, 2 PUFF INH Q4H Y for WHEEZING AND SOB, #1 INHALER Prov:GRIFFIN COHEN DO 07/24/15 Allergies Allergies: Coded Allergies: No Known Allergy (Unverified , 08/22/16) PMhx/Soc Medical and Surgical Hx: pt denies Medical Hx, pt denies Surgical Hx History of Surgery: No Anesthesia Reaction: No Hx Neurological Disorder: No Hx Respiratory Disorders: No Hx Cardiac Disorders: No Hx Psychiatric Problems: Yes (on psych meds, depression) Hx Miscellaneous Medical Probl: No Hx Alcohol Use: No Hx Substance Use: No Hx Tobacco Use: No (quit) Physical Exam Vitals Vital Signs Date Time Temp Pulse Resp B/P Pulse Ox O2 Delivery O2 Flow Rate FiO2 12/25/16 02:36 97.2 100 20 145/75 98 Physical Exam Const: [] Head: Atraumatic Eyes: Normal Conjunctiva ENT: Normal External Ears, Nose and Mouth. Neck: Full range of motion..~ No meningismus. Resp: Clear to auscultation bilaterally Cardio: Regular rate and rhythm, no murmurs Abd: Soft, non tender, non distended. Normal bowel sounds Skin: No petechiae. Right leg rash to right calf bilaterally without tenderness, swelling, discoloration, deformity. Right lateral foot near the fifth toe has mild swelling and warmth to touch. No evidence of trauma. Negative Homans sign. No neurovascular deficits. Back: No midline or flank tenderness Ext: No cyanosis, or edema Neur: Awake and alert Psych: Normal Mood and Affect Procedures/MDM 31-year-old male presents emergency department for right leg rash to bilateral lower extremity for 2 days. Denies headache, dizziness, blurred vision, neck pain, shoulder pain, chest pain , back pain, difficulty walking when lying flat, abdominal pain, nausea, vomiting, constipation, diarrhea, urinary symptoms, loss of bowel bladder control, recent long travel, numbness or tingling sensation, trauma, injury, falls, recent exposure to any illness, recent antibiotic use in the last 3 months, fever, chills. No known drug allergies. No past medical history. No surgeries. Does not take any prescription medication at home. Smokes half a pack of cigarettes a day. Occasional drink alcoholic beverages. Denies use of illegal drugs. Physical exam: Right leg rash to right calf bilaterally without tenderness, swelling, discoloration, deformity. Right lateral foot near the fifth toe has mild swelling and warmth to touch. Negative Homans sign. No evidence of trauma. No neurovascular deficits. Disease process was explained to the patient. He verbalized understanding and agreed with the plan of care. Differential diagnosis: Cellulitis versus allergic reaction versus rash Final diagnosis cellulitis, rash Prescription: Keflex. Motrin. Benadryl. Hydrocortisone cream. Follow-up with primary care physician the next 24-48 hours. Come back here in the emergency department for any new symptoms or any worsening of symptoms. All questions and concerns were answered. Patient verbalized understanding and agreed with the plan of care. Hemodynamically stable discharge. Departure Diagnosis: Primary Impression: Rash Additional Impression: Cellulitis Condition: Stable Additional Instructions: Follow-up with primary care physician the next 24-48 hours. Come back here in the emergency department for any new symptoms or any worsening of symptoms. All questions and concerns were answered. Patient verbalized understanding and agreed with the plan of care. ARIANNE WATSON Dec 25, 2016 03:09
[2016-12-25] MEDS ORDERED: BEN25 PO (03:11)
[2016-12-25] MEDS ORDERED: IBUP800T25 PO (03:11)
[2016-12-25] MEDS ORDERED: CEPH-443 PO (03:14)
[2016-12-25] MEDS ORDERED: HC30CR25 TOP (03:14)
== END 2016-12-25 03:28 | disposition home or self-care (01) ==
LOC: FTE 02:33
DX: L03.115 Cellulitis of right lower limb (principal); L03.116 Cellulitis of left lower limb; Z87.891 Personal history of nicotine dependence
CPT/HCPCS: 99283

== ENCOUNTER 2016-12-30 09:29 | Emergency (ER) | payer OTHER ==
[~2016-12-30] VITALS: Ht 180.3 cm; Wt 88.5 kg
[~2016-12-30 09:29] MED LIST changes: +BEN25 PO; +CEPH-443 PO; +HC30CR25 TOP; +IBUP800T25 PO
[2016-12-30 09:32] VITALS: Ht 180.3 cm; Wt 88.5 kg
[2016-12-30] MEDS ORDERED: DIPHTH/TET/ACEL PERTUSS (ADULT) 0.5 ML VIAL IM* ONE (10:00)
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
== END 2016-12-30 11:09 | disposition left against medical advice (07) ==
LOC: FTE 09:29
DX: S61.011A Laceration without foreign body of right thumb without damage to nail, initial encounter (principal); W26.0XXA Contact with knife, initial encounter; Y92.9 Unspecified place or not applicable; Z23 Encounter for immunization; Z87.891 Personal history of nicotine dependence
CPT/HCPCS: 90471; 90715; Z7502

== ENCOUNTER 2017-01-04 14:01 | Emergency (ER) | payer SELFPAY ==
[~2017-01-04] VITALS: Wt 81.8 kg
== END 2017-01-04 16:35 | disposition left against medical advice (07) ==
LOC: FTE 16:28
DX: Z53.21 Procedure and treatment not carried out due to patient leaving prior to being seen by health care provider (principal)

== ENCOUNTER 2017-03-31 15:59 | Emergency (ER) | END 2017-03-31 21:13 | disposition home or self-care (01) ==

== ENCOUNTER 2017-08-29 14:44 | Emergency (ER) | END 2017-08-29 16:57 | disposition home or self-care (01) ==

== ENCOUNTER 2017-09-12 14:55 | Emergency (ER) | END 2017-09-12 16:56 | disposition home or self-care (01) ==